=== PATIENT | female | born 1995 | race Asian ===

== ENCOUNTER 2020-03-22 17:14 | Emergency (ER) | payer OTHER ==
[~2020-03-22] VITALS: Ht 165.1 cm; Wt 90.7 kg
[2020-03-22] MEDS ORDERED: ZOLOFT100 MG PO (17:20)
[2020-03-22 17:53] LABS: URINE BILIRUBIN NEGATIVE (Negative); URINE BLOOD 2+ (Negative); URINE CLARITY CLEAR; URINE COLOR YELLOW; URINE GLUCOSE-RANDOM* NEGATIVE (Negative); URINE KETONES NEGATIVE (Negative); URINE LEUKOCYTES-REFLEX NEGATIVE (Negative); URINE NITRITE-REFLEX NEGATIVE (Negative); URINE PROTEIN (DIPSTICK) 1+ (Negative); URINE SPECIFIC GRAVITY >= 1.030 (1.005-1.035); URINE UROBILINOGEN 0.2 E.U./dl (0.2-1.0)
[2020-03-22 18:02] LABS: AMP/METHAMP Negative (Negative); BARBITURATES Negative (Negative); BENZODIAZEPINES Negative (Negative); COCAINE Negative (Negative); METHADONE Negative (Negative); OPIATES Negative (Negative); PCP Negative (Negative); SQUAMOUS 4-10 Moderate /LPF (0-3)
[2020-03-22 18:03] LABS: CASTS None Seen /LPF (None Seen); CRYSTALS None Seen /LPF (None Seen); URINE WBC-REFLEX 0-5 Rare /HPF (0-5); YEAST-REFLEX Present (None Seen)
[2020-03-22 18:04] LABS: URINE RBC 0-2 Rare /HPF (0-2)
[2020-03-22 18:09] LABS: ABSOLUTE NEUTROPHILS 10.8 thou/uL (1.4-8.2); BASOPHILS 0.3 % (0.0-2.0); EOSINOPHILS 0.3 % (0.0-3.0); HEMATOCRIT 43.9 % (37.0-47.0); HEMOGLOBIN 14.6 gm/dL (12.0-15.0); LYMPHOCYTES 9.7 % (24.0-44.0); MCH 29.6 pg (26.0-34.0); MCHC 33.2 g/dL (28.0-37.0); MCV 89.2 fL (80.0-100.0); MONOCYTES 3.5 % (1.0-8.0); PLATELET COUNT 230 thou/uL (150-400); POLYS 86.2 % (36.0-66.0); RBC 4.92 mil/uL (4.20-5.00); RDW 12.8 % (10.5-14.5); WBC 12.5 thou/uL (4.0-11.0)
[2020-03-22 18:22] LABS: ANION GAP 8 mmol/L (7-16); BUN 15 mg/dL (7-18); CALCIUM 8.9 mg/dL (8.5-10.1); CHLORIDE 107 mmol/L (98-107); CO2 28 mmol/L (21-32); CREATININE 0.7 mg/dL (0.6-1.0); GLUCOSE 109 mg/dL (74-106); POTASSIUM 4.3 mmol/L (3.5-5.1); SALICYLATE < 2.8 mg/dL (2.8-20.0); SODIUM 143 mmol/L (136-145)
[2020-03-22 19:06] VITALS: BP 99/70
== END 2020-03-22 19:09 | disposition home or self-care (01) ==
LOC: ER 17:14
PROVIDERS: Emergency Medicine
DX: R45.851 Suicidal ideations (principal); R51 Headache; F32.9 Major depressive disorder, single episode, unspecified; Z79.899 Other long term (current) drug therapy